=== PATIENT | female | born 1965 | race Caucasian/White ===

== ENCOUNTER 2016-06-28 12:34 | Observation (INO) | payer MEDICARE, OTHER ==
[2016-06-28] MEDS ORDERED: NORMAL SALINE 1,000 ML IV ONE ×2 (13:01→14:47)
--- OUTSIDE RECORDS SUMMARY | 2016-06-28 13:18 | XMS REPORT | Continuity of Care Document ---
:1965 Author Organization [facility] ([facility]) Address [address] [place] [address] Phone [phone] Care Team Providers Name Role Phone Renaldo Little Primary Care Provider [phone] Source Comments This disclosure is being made pursuant to the Care Everywhere program, applicable federal and state laws, and may not contain all informaitonavailable regarding this patient.[facility] ([facility]) Active Allergies and Adverse Reactions Allergen Noted Date Severity Reactions Comments Gadolinium-Containing 07/25/2008 Anaphylactic Shock Pt states reaction Contrast Media from MRI dye in 1992 Metoclopramide Nausea & Vomiting Current Medications Prescription Sig. Disp. Refills Start Date End Date Status levothyroxine take 75 mcg by mouth Active (SYNTHROID) 75 mcg daily. tablet venlafaxine take 1 Tab by mouth 3 Active (EFFEXOR) 100 mg times daily. 2 in the tablet morning, 1 in the evening ALPRAZolam (XANAX) take 0.5 mg by mouth 3 Active 0.5 mg tablet times daily. CODEINE/BUTALBITAL/ take by mouth as needed. Active ASA/CAFFEIN (FIORINAL-CODEINE #3 PO) omeprazole take 1 Cap by mouth 2 60 Cap 0 07/25/2008 Active (PRILOSEC) 10 mg times daily. Indications: capsule Gastroesophageal Reflux simvastatin (ZOCOR) take 1 Tab by mouth every 30 Tab 3 07/25/2008 Active 20 mg tablet evening. Indications: Hypercholesterolemia ALBUTEROL, REFILL, use by inhalation. Pro Active INHL air metoPROLol take 1 Tab by mouth 2 60 Tab 11 08/28/2008 Active (LOPRESSOR) 50 mg times daily. Indications: tablet palpitation FLUTICASONE/SALMETE Active ROL (ADVAIR HFA INH) Active Problems Problem Noted Date Other physical therapy 03/03/2008 Muscle weakness (generalized) 03/03/2008 Benign neoplasm of skin, site unspecified 06/26/2007 Other and unspecified disc disorder of unspecified region 08/17/2006 Other allied disorders of spine 04/27/2006 Abnormal mammogram, unspecified 03/27/2006 Unspecified hypothyroidism 03/15/2006 Edema 03/15/2006 Other dyspnea and respiratory abnormality 03/15/2006 Other screening mammogram 12/21/2005 Screening for diabetes mellitus 12/21/2005 Screening for lipoid disorders 12/21/2005 Backache, unspecified 10/31/2005 Immunizations Name Dates Previously Given Next Due Influenza, unspecified 12/20/2006,12/21/2005 Social History Tobacco Use Types Packs/Day Years Used Date Current Every Day Smoker Cigarettes 1 30 Smokeless Tobacco: Never Used Alcohol Use Drinks/Week oz/Week Comments No Last Filed Vital Signs Vital Sign Reading Time Taken Blood Pressure 90/47 05/06/2015 11:26 AM CDT Pulse 59 05/06/2015 11:26 AM CDT Temperature 36 C (96.8 F) 05/06/2015 11:26 AM CDT Respiratory Rate 16 12/22/2008 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 Height 1.702 m (5' 7.01") 05/06/2015 11:26 AM CDT Weight 51.3 kg (113 lb 1.5 oz) 05/06/2015 11:26 AM CDT Body Mass Index 17.71 05/06/2015 11:26 AM CDT Oxygen Saturation 97% 12/22/2008 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 Plan of Care Health Maintenance Due Date Last Done Comments HCV Screening 1965 Hepatitis B Vaccine (1 of 3 1965 - Primary Series) Tdap Vaccine 12/07/1974 MMR Vaccine 12/07/1981 Td Vaccine 12/07/1981 Pneumococcal Vaccine (1 of 1 12/07/1982 - PPSV23) Cervical Cancer Screening 12/07/1993 Colonoscopy 12/07/2013 Mammogram 12/10/2013 12/10/2012, Additional history exists 01/22/2009, 12/22/2008 Lipid Disorder Screening 12/18/2013 12/18/2008, 07/25/2008, 12/21/2005 Influenza Vaccine: Seasonal 09/20/2015 12/20/2006, (#1) 12/21/2005 Results from Last 3 Months Not on file
--- NOTE | 2016-06-28 13:23 | ERNOTE ---
Medical Problem HPI - Narrative Date of Service: 06/28/16 - General Chief Complaint: General Assessment Time Seen by Provider: 06/28/16 12:47 Source: patient Exam Limitations: no limitations - Immun/Allergies/Home Medications Immunizations: IMMUNIZATION HX Immunizations Up to Date No History of Influenza Vaccine No Hx Pneumococcal Vaccination No Allergies/Adverse Reactions: Allergies Penicillins Allergy (Severe, Verified 06/28/16 12:43) Other IV Dye Allergy (Severe, Uncoded 06/28/16 12:43) Other Home Medications: HOME MEDICATIONS ALPRAZolam [Xanax] 0.5 mg PO BID PRN 06/28/16 [Last Taken Unknown] Albuterol Sulfate [Ventolin HFA] 2 puff IH QID 06/28/16 [Last Taken Unknown] Butalbit/Acetamin/Caff/Codeine [Fioricet-Cod 92-668-35-30 Cap] 1 each PO QID PRN 06/28/16 [Last Taken Unknown] HYDROcodone/ACETAMINOPHEN [[place] 5-325] 1 tab PO QID PRN 06/28/16 [Last Taken Unknown] Venlafaxine HCl [Effexor Xr] 06/28/16 [Last Taken 1 Day Ago] - History of Present History Narrative: Pt. comes in with daughter and c/o weakness, dizziness, headache, generalized body aches, general malaise, depression, and confusion for two months. Pt. also states that she has no appetite and has lost 30 pounds in the past month. Pt. denies any chest pain or SOB, but family is concerned as they feel that pt. is not improving despite having seen her PCP and the ER at [facility]. Review of Systems - Review of Systems Constitutional: Present: chills, weakness, fatigue, malaise, weight loss. Absent: recent illness, fever EYE: Present: no symptoms reported ENT: Present: no symptoms reported Respiratory: Present: no symptoms reported. Absent: shortness of breath, cough , wheezing Cardiology: Present: no symptoms reported. Absent: chest pain, palpitations, edema Gastrointestinal/Abdominal: Present: eating less, drinking less. Absent: nausea , vomiting, diarrhea, abdominal pain Genitourinary: Present: no symptoms reported Musculoskeletal: Present: back pain, muscle pain, neck pain, joint pain Skin: Present: no symptoms reported. Absent: rash, change in color, change in hair/nails Neurological: Present: anxiety, depressed, emotional problems, headache, dizziness/light-headedness, weakness, tremors. Absent: numbness, tingling, pre- existing deficit Endocrine: Present: excessive sweating, intolerance to heat, intolerance to cold , unexplained weight loss Hematologic/Lymphatic: Present: no symptoms reported. Absent: easy bruising, easy bleeding, swollen glands Psych: Present: anxiety, depressed, emotional problems All Other Systems: All systems neg except as marked - Patient's Past Medical History Patient History - Medical: Anxiety, Chronic Pain, Depression Patient History - Cardiac/Respiratory: Arrhythmias, COPD Patient History - Cancer: Breast, Thyroid Patient History - Surgical Procedures: Appendectomy, Back Surgery, Other Patient History - Other: None - Social History Living Situations: home Psych History: Hx of Anxiety Smoking Status: Current every day smoker Have you smoked in the past 12 months: Yes Alcohol Use: none Drug Use: none - Immunizations Immunizations Up to Date: No Hx Pneumococcal Vaccination: No History of Influenza Vaccine: No Physical Exam - Physical Exam General Appearance: Present: no apparent distress, lethargic, cachetic Eye Exam: Abnormal EOM: bilateral - spastic and sluggish, Abnormal pupil: bilateral - sluggish bilat but equal, Scleral icterus: bilateral Ears, Nose, Throat: Present: normal ENT inspection, normal pharynx Neck: Present: normal inspection, nontender. Absent: lymphadenopathy (R), lymphadenopathy (L) Respiratory: Present: no respiratory distress, no accessory muscle use, chest nontender, lungs clear, decreased breath sounds Cardiovascular/Chest: Present: regular rate, rhythm, no murmur, normal peripheral pulses Gastrointestinal/Abdominal: Present: nondistended, soft, abnormal bowel sounds - hypo. Absent: tenderness Back Exam: Present: normal inspection Extremity Exam: Present: normal inspection Neurological Exam: Present: motor weakness - throughout, disoriented to time Skin Exam: Present: cool/dry, jaundice, pallor Lymphatic Exam: Present: no adenopathy ED Progress - Date and Time Seen: Date and Time: 06/28/16 15:52 Feel that pt. is not safe to go home at this time as confusion is likely to unintentional overdose but could be related to acute neurogenic diagnosis. So discussed with Domonique and she states that pt. is appropriate for observation admission. Pt. admitted to Dr Canada when she accepted pt. after discussing with me and case management - Results and Orders Patient's Lab Results:: I have reviewed the patient's lab results. Results and Orders: hypothyroid sub clinical - Vital Signs Patient's Vital Signs:: I have reviewed the patient's vital signs. Vital Signs: Vital Signs 06/28/16 12:37 Temperature 36.3 C L Pulse Rate 70 Respiratory 18 Rate Blood Pressure 95/47 O2 Sat by Pulse 98 Oximetry - EKG EKG: NSR EKG read: Reviewed by me EKG Comments: Interpreted by Dr turner - X-Ray X-Ray #1 X-Ray: chest Interpretation: Reviewed by me X-ray Comments: IMPRESSION: 1. No focal acute cardiopulmonary finding. 2. Findings compatible with acute or chronic bronchitis versus reactive airways disease. Also consider COPD/emphysema, if the patient has history of smoking. - CT/Ultrasound CT/Ultrasound Narrative: Head CT - Progress/Reassessment Chief Complaint: General Assessment Progress:: Unchanged Departure - Departure Clinical Impression: Weakness Accidental medication overdose Qualifiers: Encounter type: initial encounter Qualified Code(s): T50.901A - Poisoning by unspecified drugs, medicaments and biological substances, accidental ( unintentional), initial encounter Depression Qualifiers: Depression Type: unspecified Qualified Code(s): F32.9 - Major depressive disorder, single episode, unspecified Altered mental status Qualifiers: Altered mental status type: delirium Qualified Code(s): R41.0 - Disorientation , unspecified Hypotension Qualifiers: Hypotension type: unspecified hypotension type Qualified Code(s): I95.9 - Hypotension, unspecified Disposition: [facility] Condition: Fair
[2016-06-28 13:24] LABS: Hematocrit 31.2 % (37.0-47.0); Hemoglobin 10.3 gm/dL (12.5-16.0); Mean Cell Volume 87.6 fl (78-100); Mean Corpuscular Hemoglobin 28.9 pg (27-31); Mean Platelet Volume 10.6 fl (6.0-9.5); Neutrophil % 53.5 % (42-75.0); Platelet Count 204 K/mm3 (150-450); Red Blood Count 3.56 M/mm3 (4.2-5.4); Red Cell Distribution Width 14.1 % (11.5-14.0); White Blood Count 5.6 K/mm3 (4.0-10.5)
[2016-06-28 13:34] LABS: Urine Bilirubin Negative (NEGATIVE); Urine Blood Negative /ul (NEGATIVE); Urine Ketone Negative (NEGATIVE); Urine Nitrite Negative (NEGATIVE); Urine Protein Negative (NEGATIVE); Urine Specific Gravity >=1.030 SP.GR. (1.005-1.010); Urine Urobilinogen Normal (NORMAL)
[2016-06-28 13:45] LABS: ALT 23 U/L (19-67); AST 25 U/L (0-48); Acetaminophen * 6.2 mcg/mL (10.0-30.0); Albumin * 3.1 gm/dl (3.4-5.0); Alkaline Phosphatase * 45 U/L (50-170); Anion Gap 10.1 mmol/L (6.8-13.8); BUN/Creatinine Ratio 15.6 (9.0-21.6); Bilirubin, Total 0.2 mg/dL (0.0-1.1); Blood Urea Nitrogen 19 mg/dL (3-23); CRP 1.6 mg/dL (0.0-0.9); Calcium * 8.6 mg/dL (7.9-10.9); Carbon Dioxide 29.7 mmol/L (24-32.6); Chloride 103 mmol/L (97-106); Glucose * 105 mg/dL (70-110); Potassium 3.8 mmol/L (3.4-4.6); Sodium 139 mmol/L (132-142); T4 Free * 1.43 ng/dL (0.76-1.46); TSH * 0.206 uIU/mL (0.358-3.74); Total Protein 6.3 gm/dL (6.2-8.2); Troponin I Less than 0.017 ng/ml (0.00-0.10)
[2016-06-28 13:47] LABS: Urine Appearance Clear; Urine Bacteria None Seen; Urine Color Yellow; Urine RBC None Seen /hpf (0-5); Urine WBC 0-5 /hpf (0-5)
[2016-06-28 14:40] LABS: Cocaine Ur Negative (NEGATIVE); Urine PCP Negative (NEGATIVE); Urine THC Negative (NEGATIVE)
[2016-06-28 14:42] LABS: Urine Barbiturate Positive (NEGATIVE); Urine Benzodiazepines Positive (NEGATIVE); Urine Opiates Positive (NEGATIVE)
[2016-06-28] MEDS ORDERED: diphenhydrAMINE HCL 50 MG/ML VIAL IV ONE (14:43)
[2016-06-28] MEDS ORDERED: KETOROLAC TROMETHAMINE 30 MG/ML VIAL IV ONE (14:43)
[2016-06-28] MEDS ORDERED: METOCLOPRAMIDE HCL 5 MG/ML VIAL IV ONE (14:43)
[2016-06-28] MEDS ORDERED: diphenhydrAMINE HCL 50 MG/ML VIAL ONE (14:50)
[2016-06-28] MEDS ORDERED: KETOROLAC TROMETHAMINE 30 MG/ML VIAL ONE (14:52)
[2016-06-28] MEDS ORDERED: METOCLOPRAMIDE HCL 5 MG/ML VIAL ONE (14:52)
--- OUTSIDE RECORDS SUMMARY | 2016-06-28 16:10 | XMS REPORT | Continuity of Care Document ---
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
[2016-06-28 16:32] LABS: Salicylate 12.5 mg/dL (2.8-20.0)
[2016-06-28 17:58] LABS: Iron 47 mcg/dL (35-120); Transferrin Sat. (% Sat.) 12 % (15-55)
[2016-06-28] MEDS: NORMAL SALINE 1,000 ML IV PRN ×2 (18:03→23:26)
[2016-06-28] MEDS ORDERED: ALBUTEROL SULFATE 2.5 MG/3 ML VIAL.NEB IH SCH (19:00)
[2016-06-28] MEDS ORDERED: ACETAMINOPHEN 325 MG TABLET PO PRN (19:35)
[2016-06-28] MEDS ORDERED: NICOTINE 14 MG PATC TD SCH (21:00)
[2016-06-28] MEDS ORDERED: AMITRIPTYLINE HCL 10 MG TABLET PO ONE (21:00)
[2016-06-29] MEDS: NORMAL SALINE 1,000 ML IV PRN (06:17)
--- NOTE | 2016-06-29 06:58 | HP ---
Chief Complaint - Chief Complaint Date of Service: 06/28/16 Time of Service: 19:40 Chief Complaint: Dizziness and disoriented History of Present Illness: 50 years old female adm to the hospital with reports of feeling dizzy and disoriented while at home. pt stated she had taken her choline usual daily dose but noticed she was getting dizzy and disoriented. Pt daughter was concern for possible overdose on home medications and brought her to the ER. In ER CT head no acute intra-cranial abnormality. pt denies plans to hurt self or others.PMH significant for depression, migraine,smoker, and hypertension. Plan of care discussed with pt she verbalized understanding and agree. - Patient's Past Medical History Patient History - Medical: Anxiety, Chronic Pain, Depression, Headache, Migraines Patient History - Cardiac/Respiratory: Arrhythmias, COPD Patient History - Cancer: Breast, Thyroid Patient History - Surgical Procedures: Appendectomy, Back Surgery, Other Patient History - Other: None - Family History Mother Family History - Medical: Diabetes Type 2 Family History - Cardiac/Respiratory: Arrhythmias Family History - Cancer: No pertinent family hx Brother Family History - Medical: No pertinent hx Family History - Cardiac/Respiratory: No pertinent hx Family History - Cancer: Other Father Family History - Medical: , History Unknown Family History - Cardiac/Respiratory: History Unknown Family History - Cancer: Other - Social History Living Situations: other Psych History: Psychiatric Hx, Hx of Anxiety, Hx of Depression Smoking Status: Current every day smoker Have you smoked in the past 12 months: Yes Do you dip or chew tobacco: No Patient requests Smoking Cessation Consult: No Alcohol Use: rarely Drug Use: benzodiazepine - Immunizations Immunizations Up to Date: No Hx Pneumococcal Vaccination: No History of Influenza Vaccine: No Review Of Systems (GEN) - Review of Systems Generalized/Overall Review: Present: No Symptoms Reported EENTM: Present: No Symptoms Reported Respiratory: Present: Cough Cardiac: Present: No Symptoms Reported Abdominal: Present: No Symptoms Reported Genitourinary: Present: No Symptoms Reported Musculoskeletal: Present: No Symptoms Reported Neurological: Present: No Symptoms Reported Skin: Present: No Symptoms Reported Endocrine: Present: No Symptoms Reported Immunizations: IMMUNIZATION HX Immunizations Up to Date No History of Influenza Vaccine No Hx Pneumococcal Vaccination No Allergies/Adverse Reactions: Allergies Allergy/AdvReac Type Severity Reaction Status Date / Time Penicillins Allergy Severe Other Verified 06/28/16 19:11 IV Dye Allergy Severe Other Uncoded 06/28/16 12:43 Home Medications: HOME MEDICATIONS ALPRAZolam [Xanax] 0.5 mg PO BID PRN 06/28/16 [Last Taken 06/28/16 09:00] Albuterol Sulfate [Ventolin HFA] 2 puff IH QID 06/28/16 [Last Taken Unknown] Butalbit/Acetamin/Caff/Codeine [Fioricet-Cod 70-254-18-30 Cap] 1 each PO QID PRN 06/28/16 [Last Taken Unknown] Fenofibric Acid (Choline) [Trilipix] 135 mg PO DAILY 06/28/16 [Last Taken Unknown] Fluticasone/Salmeterol [Advair 250-50 Diskus] 1 puff IH BID 06/28/16 [Last Taken Unknown] HYDROcodone/ACETAMINOPHEN [[place] 5-325] 1 tab PO QID PRN 06/28/16 [Last Taken Unknown] Levothyroxine Sodium [Synthroid] 50 mcg PO DAILY 06/28/16 [Last Taken 06/28/16 07:00] Metoprolol Tartrate [Lopressor] 50 mg PO BID 06/28/16 [Last Taken Unknown] Venlafaxine HCl 100 mg PO BID 06/28/16 [Last Taken 06/28/16 09:00] Exam - Exam Vital Signs: Vital Signs - Last Taken Temp 36.9 C 06/29/16 06:29 Pulse 75 06/29/16 06:29 Resp 18 06/29/16 06:29 BP 118/54 06/29/16 06:29 Pulse Ox 96 06/29/16 06:29 Constitutional: Present: Alert, Oriented x3, Cooperative, Well developed, Looks Older than stated age ENT Exam: Present: moist mucous membranes Eye Exam: bilateral eye: PERRL Neck: Present: non-tender Back Exam: Present: normal inspection Breasts: Present: Exam deferred Respiratory: Present: chest non-tender, normal breath sounds, no respiratory distress, decreased breath sounds Cardiovascular/Chest: Present: normal peripheral pulses, regular rate, rhythm, no chest tenderness, no edema, no gallop Peripheral Pulses: dorsalis-pedis (R): 2+, dorsalis-pedis (L): 2+ Abdomen: Present: Normal bowel sounds, soft, nontender, nondistended, no rebound tenderness /Rectal: Present: Exam deferred Extremity: Present: normal range of motion, non-tender Skin Exam: Present: normal color, warm/dry, no cyanosis Neurologic: Present: oriented x 3 Appearance: Present: appropriate appearance Eye contact: Present: cooperative Thoughts: Present: normal thought pattern Diagnostic Studies: Abnormal Lab Results 06/28/16 Range/Units 16:14 Phenobarbital 1.2 L (15-40) mcg/mL Laboratory Results WBC 5.6 K/mm3 (4.0-10.5) 06/28/16 13:15 RBC 3.56 M/mm3 (4.2-5.4) L 06/28/16 13:15 Hgb 10.3 gm/dL (12.5-16.0) L 06/28/16 13:15 Hct 31.2 % (37.0-47.0) L 06/28/16 13:15 MCV 87.6 fl (78-100) 06/28/16 13:15 MCH 28.9 pg (27-31) 06/28/16 13:15 MCHC 33.0 g/dl (32-36) 06/28/16 13:15 RDW 14.1 % (11.5-14.0) H 06/28/16 13:15 Plt Count 204 K/mm3 (150-450) 06/28/16 13:15 MPV 10.6 fl (6.0-9.5) H 06/28/16 13:15 Immature Gran % (Auto) 0.20 % (0.001-0.429) 06/28/16 13:15 Immature Gran # (Auto) 0.01 K/mm3 (0.000-0.0310) 06/28/16 13:15 Neutrophils % 53.5 % (42-75.0) 06/28/16 13:15 Lymphocytes % 31.0 % (20-51) 06/28/16 13:15 Monocytes % 9.0 % (0.0-9) 06/28/16 13:15 Eosinophils % 6.1 % (0.0-3.0) H 06/28/16 13:15 Basophils % 0.2 % (0.0-1.0) 06/28/16 13:15 Nucleated RBC % 0.0 k/mm3 (0-1) 06/28/16 13:15 Neutrophils # 3.0 K/mm3 (1.3-6.0) 06/28/16 13:15 Lymphocytes # 1.7 k/mm3 (1.5-3.5) 06/28/16 13:15 Monocytes # 0.5 k/mm3 (0.0-1.0) 06/28/16 13:15 Eosinophils # 0.3 k/mm3 (0.0-0.7) 06/28/16 13:15 Absolute Basophils 0.0 k/mm3 (0.0-0.1) 06/28/16 13:15 ESR 21 mm/hr (0-15) H 06/28/16 13:15 pCO2 35.9 mmHg (32.0-45.0) 06/28/16 13:35 pO2 80.6 mmHg (83.0-108.0) L 06/28/16 13:35 HCO3 22.3 mmol/L (21.0-28.0) 06/28/16 13:35 Total CO2 23.4 mmol/L (19.0-24.0) 06/28/16 13:35 Base Excess -1.9 mmol/L (-2.0-3.0) 06/28/16 13:35 ABG pH 7.41 (7.35-7.45) 06/28/16 13:35 ABG O2 Sat (Measured) 96.1 % (94.0-98.0) 06/28/16 13:35 Sodium 139 mmol/L (132-142) 06/28/16 13:15 Plasma Sodium 139 mmol/L (130-142) 06/28/16 13:15 Potassium 3.8 mmol/L (3.4-4.6) 06/28/16 13:15 Chloride 103 mmol/L (97-106) 06/28/16 13:15 Carbon Dioxide 29.7 mmol/L (24-32.6) 06/28/16 13:15 Anion Gap 10.1 mmol/L (6.8-13.8) 06/28/16 13:15 BUN 19 mg/dL (3-23) 06/28/16 13:15 Creatinine 1.22 mg/dL (0.4-1.4) 06/28/16 13:15 Est GFR (Non-Af Amer) 49 mL/min (60-130) L 06/28/16 13:15 BUN/Creatinine Ratio 15.6 (9.0-21.6) 06/28/16 13:15 Random Glucose 105 mg/dL (70-110) 06/28/16 13:15 Lactic Acid, Venous 0.8 mmol/L (0.4-1.9) 06/28/16 13:15 Calcium 8.6 mg/dL (7.9-10.9) 06/28/16 13:15 Calcium Adj for Albumin 9.0 mg/dL (8.4-10.2) 06/28/16 13:15 Iron 47 mcg/dL (35-120) 06/28/16 13:15 TIBC 378 mcg/dL (260-445) 06/28/16 13:15 Transferrin % Sat 12 % (15-55) L 06/28/16 13:15 Total Bilirubin 0.2 mg/dL (0.0-1.1) 06/28/16 13:15 AST 25 U/L (0-48) 06/28/16 13:15 ALT 23 U/L (19-67) 06/28/16 13:15 Alkaline Phosphatase 45 U/L (50-170) L 06/28/16 13:15 Ammonia 29.0 mcmol/L (11-35) 06/28/16 13:15 Troponin I Less than 0.017 ng/ml (0.00-0.10) 06/28/16 13:15 C-Reactive Prot, Quant 1.6 mg/dL (0.0-0.9) H 06/28/16 13:15 Total Protein 6.3 gm/dL (6.2-8.2) 06/28/16 13:15 Albumin 3.1 gm/dl (3.4-5.0) L 06/28/16 13:15 Vitamin B12 680 pg/mL (193-986) 06/28/16 13:15 TSH 0.206 uIU/mL (0.358-3.74) L 06/28/16 13:15 Free T4 1.43 ng/dL (0.76-1.46) 06/28/16 13:15 Urine Color Yellow 06/28/16 13:30 Urine Appearance Clear 06/28/16 13:30 Urine pH 6.0 pH (5.0-7.0) 06/28/16 13:30 Ur Specific [place] >=1.030 SP.GR. (1.005-1.010) 06/28/16 13:30 Urine Protein Negative mg/dL (NEGATIVE) 06/28/16 13:30 Urine Glucose (UA) Negative mg/dL (NEGATIVE) 06/28/16 13:30 Urine Ketones Negative mg/dL (NEGATIVE) 06/28/16 13:30 Urine Blood Negative /ul (NEGATIVE) 06/28/16 13:30 Urine Nitrate Negative (NEGATIVE) 06/28/16 13:30 Urine Bilirubin Negative mg/dl (NEGATIVE) 06/28/16 13:30 Urine Urobilinogen Normal EU/dl (NORMAL) 06/28/16 13:30 Ur Leukocyte Esterase Negative /ul (NEGATIVE) 06/28/16 13:30 Urine RBC None seen /hpf (0-5) 06/28/16 13:30 Urine WBC 0-5 /hpf (0-5) 06/28/16 13:30 Ur Epithelial Cells 0-5 /hpf (0-5) 06/28/16 13:30 Urine Bacteria None seen (NONE) 06/28/16 13:30 Urine Culture Comments Culture to follow 06/28/16 13:30 Salicylates 12.5 mg/dL (2.8-20.0) 06/28/16 16:14 Urine Opiates Screen Positive (NEGATIVE) H 06/28/16 13:04 Acetaminophen 6.2 mcg/mL (10.0-30.0) L 06/28/16 13:15 Barbiturate Screen Positive (NEGATIVE) H 06/28/16 13:04 Ur Phencyclidine Scrn Negative (NEGATIVE) 06/28/16 13:04 Urine Amphetamine Negative (NEGATIVE) 06/28/16 13:04 Phenobarbital 1.2 mcg/mL (15-40) L 06/28/16 16:14 U Benzodiazepines Scrn Positive (NEGATIVE) H 06/28/16 13:04 Urine Cocaine Screen Negative (NEGATIVE) 06/28/16 13:04 Urine Marijuana (THC) Negative (NEGATIVE) 06/28/16 13:04 Ethyl Alcohol Less than 3.0 mg/dL (0.0-10.0) 06/28/16 13:15 CT head No acute intra-cranial abnormality Assessment/Plan - Narrative Narrative: Accidental overdose Pt was tested positive for Benzo, barbiturate and opiates. Home medications Xanax, Choline and [place], will keep on hold while hospitalized. Continue with IVF, Tylenol for headache and coffee. Chronic Depression-stable Migraine Elavil was initiated May have black coffee Substance abuse smoker nicotine patches and smoking cessation education Hypothyroidism May resume home dose of synthroid. Code status: DNR VTE ppx: Ambulate Anticipate discharge home 0-1 day and follow up with PCP Time 36 minutes - Assessment/Plan (1) Accidental medication overdose Problem: Acute Qualifiers: Encounter type: initial encounter Qualified Code(s): T50.901A - Poisoning by unspecified drugs, medicaments and biological substances, accidental ( unintentional), initial encounter (2) Altered mental status Problem: Resolved Qualifiers: Altered mental status type: delirium Qualified Code(s): R41.0 - Disorientation, unspecified (3) Depression Problem: Chronic Qualifiers: Depression Type: unspecified Qualified Code(s): F32.9 - Major depressive disorder, single episode, unspecified
[2016-06-29] MEDS ORDERED: LEVOTHYROXINE SODIUM 50 MCG TABLET PO SCH ×2 (07:00→09:00)
[2016-06-29] MEDS ORDERED: FLUTICASONE/SALMETEROL 14 PUFF DISK.W.DEV IH SCH (09:00)
[2016-06-29] MEDS ORDERED: METOPROLOL TARTRATE 50 MG TABLET PO SCH (09:00)
[2016-06-29] MEDS ORDERED: VENLAFAXINE HCL 75 MG TABLET PO SCH (09:00)
--- NOTE | 2016-06-29 10:33 | DS ---
(1) Accidental medication overdose Problem: Acute Qualifiers: Encounter type: initial encounter Qualified Code(s): T50.901A - Poisoning by unspecified drugs, medicaments and biological substances, accidental ( unintentional), initial encounter (2) Fe deficiency anemia Problem: Acute (3) Anxiety and depression Problem: Chronic (4) Chronic headache disorder Problem: Chronic Qualifiers: Headache type: unspecified (5) Low BMI Diagnosis(s): BMI-17.9. Problem: Chronic Description of Stay: DATE OF ADMISSION: 06/28/2016. DATE OF DISCHARGE: 06/29/2016. DIAGNOSTICS: CT HEAD W/O 06/28/2016. HOSPITAL COURSE: Leta Ramos is a 50 year old WF with a history of migraines/chronic headaches, breast CA, thyroid CA, nicotine abuse and weight loss who is brought in by her daughter because of increased confusion and dizziness. Patient states that she has been taking Fioricet and Vicodin more often for relief of her headaches. Patient was admitted into observation with a with a diagnosis of accidental drug overdose. CT of the head without contrast on 06/28/2016 showed age-related cortical atrophy, no acute IC hemorrhage, no midline shift, no mass effect. There is surgical hardware just superior to the left orbit. ABGs on room air were WNL. Labs revealed iron deficiency anemia with normal B12 levels. Urine drug screen was positive for opiates, phenobarbital and benzodiazepines. Phenobarbital level 1.2 g per mL, acetaminophen level 6.2 g per mL and salicylate level 12.2 mg/dl. Patient was given IV fluids with improvement in her mentation. CMP on 06/29/2016 did not show an elevation in LFTs. She also states she has lost a significant amount of weight close to 30 pounds in the last few months. She states she has been significantly depressed since the of her in 2014. Patient may benefit from age appropriate cancer screening including colonoscopy as she is over 50 years old. She is being referred to a psychiatrist for treatment for depression. She may also benefit from prophylactic treatment for chronic tension/migraine headaches and decrease in her pain medication in order to decrease rebound headaches. Patient is being discharged in a stable condition. A total of 50 minutes was spent in this encounter in examination of the patient , counseling, discussing treatment options, prognosis, plan of care, reconciliation of medications, preparation and dictating discharge summary Procedures Performed: none Results and Findings: LABS 06/28/16 13:15 WBC 5.6 Hgb 10.3 L Hct 31.2 L Plt Count 204 05 06/29/16 13:15 11:41 Plasma Sodium 139 138 Potassium 3.8 3.9 Chloride 103 105 Carbon Dioxide 29.7 24.5 BUN 19 10 Creatinine 1.22 0.76 Est GFR (Non-Af Amer) 49 L 85 D Random Glucose 105 88 Calcium Adj for Albumin 9.0 9.0 Total Bilirubin 0.2 AST 25 23 ALT 23 18 L Alkaline Phosphatase 45 L 47 L Albumin 3.1 L TSH 0.206 L Free T4 1.43 06/28/16 13:15 Iron 47 TIBC 378 Transferrin % Sat 12 L Vitamin B12 680 06/28/16 13:04 Salicylates 12.5 Urine Opiates Screen Positive H Acetaminophen 6.2 L Barbiturate Screen Positive H Phenobarbital 1.2 L U Benzodiazepines Scrn Positive H Urine Marijuana (THC) Negative Ethyl Alcohol < 3.0 Discharge Disposition: Home self care Disposition: Home self-care Condition: Undetermined Discharge Activity: Activity as tolerated Discharge Diet: General/regular food, High Fiber Referrals: Renaldo Little DO [Primary Care Provider] - Additional Patient Instructions (free text): Follow up appt with Dr. Eduardo Hernandez July 12 at 11:00 Address: [address] [place] [address] Please bring your insurance cards, and a list of any medications that you are currently taking. Please fax discharge to [facility] for courtesy eval. Appt with Dr. Little in 10-14 days . Prescriptions (Any new or edited meds): Butalbit/Acetamin/Caff/Codeine [Fioricet-Cod 66-212-83-30 Cap] 1 each PO PRN PRN #.1 capsule PRN Reason: Headache Cholecalciferol (Vitamin D3) [Vitamin D3] 1,000 unit PO DAILY #100 capsule HYDROcodone/ACETAMINOPHEN [[place] 5-325] 1 tab PO BID PRN #.1 tablet PRN Reason: Pain Complete Home Medications List: Complete Home Medication List: ALPRAZolam [Xanax] 0.5 mg PO BID PRN 06/28/16 Albuterol Sulfate [Ventolin HFA] 2 puff IH QID 06/28/16 Fenofibric Acid (Choline) [Trilipix] 135 mg PO DAILY 06/28/16 Fluticasone/Salmeterol [Advair 250-50 Diskus] 1 puff IH BID 06/28/16 Levothyroxine Sodium [Synthroid] 50 mcg PO DAILY 06/28/16 Metoprolol Tartrate [Lopressor] 50 mg PO BID 06/28/16 Venlafaxine HCl 100 mg PO BID 06/28/16 Butalbit/Acetamin/Caff/Codeine [Fioricet-Cod 28-142-98-30 Cap] 1 each PO PRN PRN #.1 capsule 06/29/16 Cholecalciferol (Vitamin D3) [Vitamin D3] 1,000 unit PO DAILY #100 capsule 06/29 HYDROcodone/ACETAMINOPHEN [[place] 5-325] 1 tab PO BID PRN #.1 tablet 06/29/16
[2016-06-29 11:49] VITALS: BP 120/64
[2016-06-29 12:02] LABS: Albumin * 2.5 gm/dl (3.4-5.0); Anion Gap 12.4 mmol/L (6.8-13.8); BUN/Creatinine Ratio 13.2 (9.0-21.6); Bilirubin, Total 0.5 mg/dL (0.0-1.1); Calcium * 8.1 mg/dL (7.9-10.9); Carbon Dioxide 24.5 mmol/L (24-32.6); Potassium 3.9 mmol/L (3.4-4.6)
== END 2016-06-29 15:49 | disposition home or self-care (01) ==
LOC: ER 12:34 → MS 16:05 → UNDOADMOB 16:05
PROVIDERS: ADMIT Internal Medicine; ATTEND Internal Medicine
PROC: 4A033R1 Measurement of Arterial Saturation, Peripheral, Percutaneous Approach (ICD-10-PCS; principal; 2016-06-28)
DX: T50.901A Poisoning by unspecified drugs, medicaments and biological substances, accidental (unintentional), initial encounter (principal); R63.4 Abnormal weight loss; D50.9 Iron deficiency anemia, unspecified; F32.9 Major depressive disorder, single episode, unspecified; G43.909 Migraine, unspecified, not intractable, without status migrainosus; Z68.1 Body mass index [BMI] 19.9 or less, adult; Z72.0 Tobacco use
CPT/HCPCS: 36415; 36600; 70450; 71020; 80053; 80184; 80307; 81001; 82140; 82607; 82803; 83540; 83550; 83605; 84439; 84443; 84484; 85025; 85652; 86140; 87086; 93005; 96374; 96375; 99284; G0378; G0480; G0481